=== PATIENT | female | born 1985 ===

== ENCOUNTER → 2024-03-18 | Outpatient (CLI) | payer MEDICARE ==
[2024-03-18 17:03] LABS: HEMATOCRIT(ML) 35.5 % (36.0-46.0); HEMOGLOBIN 10.8 g/dL (12.0-15.0); MEAN CORP HGB 25.2 pg (26-34); MEAN CORP HGB CONCENTRATION 30.4 g/dL (33-36.5); MEAN CORP VOLUME 82.8 fL (78-100); RED BLOOD CELL 4.29 10^6/uL (4.00-5.20); RED CELL DISTRIBUTION WIDTH 16.2 % (11.5-14.5); WHITE BLOOD CELL 7.5 10^3/uL (4.5-11.0)
[2024-03-18 17:12] LABS: ANION GAP 11.9; C-REACTIVE PROTEIN 0.59 mg/dL (0.00-5.00); CREATININE SERUM 0.45 mg/dL (0.59-1.40); POTASSIUM 3.9 mmol/L (3.6-5.2)
[2024-03-18 17:13] LABS: ALBUMIN(ML) 2.7 g/dL (3.4-5.0); ALBUMIN/GLOBULIN RATIO 0.71; BUN/CREATININE RATIO 26.66 (10.0-20.0); CALCIUM 8.3 mg/dL (8.4-10.5); EST GFR, NON-AA 155.1 (>/=60)
== END | disposition home or self-care (01) ==
LOC: LAB 15:46
DX: L89.313 Pressure ulcer of right buttock, stage 3 (principal); L03.317 Cellulitis of buttock; Z79.899 Other long term (current) drug therapy
CPT/HCPCS: 36415; 80053; 82550; 85027; 85651; 86140

== ENCOUNTER → 2024-04-01 | Outpatient (CLI) | payer MEDICARE ==
[2024-04-01 15:41] LABS: HEMATOCRIT(ML) 36.2 % (36.0-46.0); HEMOGLOBIN 10.9 g/dL (12.0-15.0); MEAN CORP HGB 25.1 pg (26-34); MEAN CORP HGB CONCENTRATION 30.1 g/dL (33-36.5); MEAN CORP VOLUME 83.4 fL (78-100); RED BLOOD CELL 4.34 10^6/uL (4.00-5.20); RED CELL DISTRIBUTION WIDTH 16.3 % (11.5-14.5); WHITE BLOOD CELL 6.8 10^3/uL (4.5-11.0)
[2024-04-01 15:51] LABS: ALBUMIN(ML) 2.7 g/dL (3.4-5.0); ALBUMIN/GLOBULIN RATIO 0.729; ANION GAP 10.9; BUN/CREATININE RATIO 30.55 (10.0-20.0); C-REACTIVE PROTEIN 2.77 mg/dL (0.00-5.00); CALCIUM 8.6 mg/dL (8.4-10.5); CARBON DIOXIDE 27.8 mmol/L (20.0-32); CREATININE SERUM 0.36 mg/dL (0.59-1.40); EST GFR, NON-AA 199.6 (>/=60); POTASSIUM 3.7 mmol/L (3.6-5.2)
== END | disposition home or self-care (01) ==
LOC: NPLAB 15:24
PROVIDERS: ATTEND Family Medicine
DX: L03.317 Cellulitis of buttock (principal); L89.313 Pressure ulcer of right buttock, stage 3; Z79.01 Long term (current) use of anticoagulants
CPT/HCPCS: 36415; 80053; 82550; 85027; 85651; 86140